=== PATIENT | female | born 1990 | race Caucasian/White ===

== ENCOUNTER 2017-10-14 00:55 | Emergency (ER) | payer MEDICAID, SELFPAY ==
[2017-10-14 01:02] VITALS: BP 132/87; PULSE 73; RESP 14; TEMP 36.9; O2SAT 96; BMI 23.3
[2017-10-14 01:29] LABS: Microscopic, Urine URINE MICROSCOPIC (MICROSCOPIC)
[2017-10-14 01:32] LABS: Basophils % 0.1 % (0.1-2.0); Eosinophils % 0.2 % (0.1-12.0); Hematocrit 40.1 % (37.0-47.0); Hemoglobin 12.9 g/dL (12.2-16.2); Lymphocytes # 1.7 K/mm3 (0.7-4.5); Lymphocytes % 10.8 K/mm3 (10-50); Mean Corpuscular HGB Conc 32.1 g/dL (31.8-35.4); Mean Corpuscular Hemoglobin 31.6 pg (27.0-31.2); Mean Corpuscular Volume 98.4 fl (81-99); Mean Platelet Volume 7.1 fl (7.4-10.4); Monocytes # 0.7 K/mm3 (0.1-1.0); Monocytes % 4.1 % (1.7-9.3); Neutrophils # 13.5 K/mm3 (1.8-7.8); Neutrophils % 84.8 % (37.0-80.0); Platelet Count 347 K/mm3 (142-424); Red Blood Count 4.07 M/mm3 (4.20-5.40); Red Cell Distribution Width 12.5 % (11.5-17.5); White Blood Count 15.9 K/mm3 (4.8-10.8)
[2017-10-14 01:39] LABS: MANUAL DIFFERENTIAL MANUAL DIFFERENTIAL (MANUAL DIFF)
[2017-10-14 01:43] LABS: Appearance,Urine CLEAR (Clear); Bilirubin,Urine Negative (Negative); Blood, Urine 2+ (Negative); Color,Urine YELLOW (Yellow); Glucose,Urine (UA) Negative (Negative); Ketones,Urine Negative (Negative); Leukocyte Esterase,Urine Negative (Negative); Nitrate,Urine Negative (Negative); Protein,Urine TRACE (Negative); Specific Gravity, Urine 1.025 (1.005-1.030); Urobilinogen,Urine 0.2 EU/dl (0.2)
[2017-10-14 01:47] LABS: Anion Gap 11.6 mEq/L (5-15); Blood Urea Nitrogen 12 mg/dL (7-18); Carbon Dioxide 26 mmol/L (21.0-32.0); Chloride 105 mmol/L (98-107); Creatinine,Serum 1.06 mg/dL (0.55-1.02); Potassium 3.6 mmoL/L (3.5-5.1); Sodium 139 mmol/L (136-145)
[2017-10-14 01:48] LABS: Urine Pregnancy, HCG Qual. Negative (Negative)
[2017-10-14 01:48] LABS: Alanine Aminotransferase 15 U/L (12-78); Albumin Level 3.6 gm/dL (3.4-5.0); Albumin/Globulin Ratio 0.9 (1.1-1.8); Alkaline Phosphatase 62 U/L (46-116); Amylase 58 U/L (25-125); Aspartate Amino Transferase 11 U/L (15-37); Bilirubin,Total 0.2 mg/dL (0.2-1.0); Calcium 8.6 mg/dL (8.5-10.1); Creatinine Clearance Estimated 79 mL/min (0-300); Estimated Glomerular Filt Rate 63 ml/min (>60); GFR (African American) 76 ML/MIN (>60); Glucose 114 mg/dL (74-106); Lipase 162 u/L (73-393); Total Protein,Serum 7.6 gm/dL (6.4-8.2)
--- NOTE | 2017-10-14 01:50 | CT_ITS ---
CT abdomen pelvis wo con Ordering Physician: Camilo Davis MD Patient Age: 27 years: Female HISTORY: ITS.REASON: pain Nausea vomiting diarrhea since 9 BPM. Hematuria. Recent pelvic pain but now Abdomen diffuse abdominal pain. TECHNIQUE: Helical CT scanning performed at of pelvis with no oral nor IV contrast utilized. HISTORY of abdominal pain COMPARISON :Previous CT abdomen pelvis from March 2014. The lung bases are clear. Abdomen/pelvis. The lack of oral and IV contrast decreases sensitivity. Liver unremarkable. Spleen unremarkable. . Pancreas appears generous in caliber throughout. Most likely stable but if upper abdominal pain should persist or progress consider follow-up amylase lipase. I see today's amylase and lipase are normal best this most likely is merely baseline appearance for this patient The lack of IV contrast diminishes resolution here but I see no discrete focal lesion nor pancreatic ductal dilatation. Kidneys. Small bilateral punctate calculi none measuring over 3 mm. Appear to be 3 tiny nonobstructive calculi towards upper pole right kidney; and mid and lower No bowel dilatation or obstruction. Upper normal wall thickness at the midportion right colon splenic flexure As well as splenic flexure.. There is moderate solid stool seen at the cecum which is low-lying at the right pelvis. No air-fluid levels at the colon. There is slight increased through the small bowel with scattered small air-fluid levels but small bowel nondilated. Nonetheless this could reflect early enteritis but unimpressive. Low-lying cecum which resides just above the bladder. No good evidence of appendicitis. Difficulty discretely visualize the appendix but I see no good evidence of appendicitis with overall appearance very similar to previous CT with oral contrast, but no remarkable fluid at cul-de-sac today however. Pelvis: The uterus appears. No free fluid no free air. Normal in size. The ovaries appear modest size normal size unremarkable IMPRESSION======== 1. No significant acute findings in the abdomen or pelvis. 2. GI tract. Minor observations: Perhaps slight increased fluid with modest scattered small air-fluid levels throughout nondilated small bowel. Unimpressive but could reflect minor enteritis. No significant liquid stool in colon evident Question perhaps minor wall thickening at the mid right colon; & splenic flexure towards left colon. Most likely reflecting lack of distention but cannot exclude some early colitis changes 3. A few Tiny punctate nonobstructive renal calculi bilaterally. No urinary tract obstruction .
[2017-10-14 01:54] LABS: Hypersegmented Neutrophils 1+; Lymphocytes % 7 % (10-50); Macrocytosis 1+; Monocytes % 1 % (2-9); Neutrophils % 88 % (42-76); Platelet Estimate Normal; Total Cells Counted 100
[2017-10-14 01:56] LABS: Amorphous Sediment,Urine Trace /lpf; Mucus,Urine Trace /lpf
[2017-10-14 02:12] LABS: Erythrocyte Sedimentation Rate 8 mm/hr (0-20)
[2017-10-14 02:34] LABS: Adenovirus F 40/41, stool Not Detected (NotDetected); Astrovirus Not Detected (NotDetected); Campylobacter Not Detected (NotDetected); Clostridium Difficile A/B, PCR Not Detected (NotDetected); Cryptosporidium Not Detected (NotDetected); Cyclospora Cayetanesis Not Detected (NotDetected); Entamoeba histolytica Not Detected (NotDetected); Enteroaggregative E coli Not Detected (NotDetected); Enteropathogenic E coli Not Detected (NotDetected); Enterotoxigenic E coli Not Detected (NotDetected); Giardia lamblia Not Detected (NotDetected); Norovirus Not Detected (NotDetected); Plesimonas Shigalloides, PCR Not Detected (NotDetected); Rotavirus A Not Detected (NotDetected); Salmonella, PCR Not Detected (NotDetected); Sapovirus Not Detected (NotDetected); Shiga-like toxin E coli Not Detected (NotDetected); Shigella Enterovasive E coli Not Detected (NotDetected); Vibrio Cholerae Not Detected (NotDetected); Vibrio, PCR Not Detected (NotDetected); Yersinia Entercolitica, PCR Not Detected (NotDetected)
--- NOTE | 2017-10-14 04:21 | HMH.EDNVD ---
ED Disposition Clinical Impression: Gastroenteritis Disposition: Home, Self-Care Condition on Discharge: Good Instructions: DI for Diarrhea and Traveler's Diarrhea -- Adult Additional Instructions: fluids and see pcp for follow up Referrals: Marino Naik MD [Primary Care Provider] - - Critical Care Critical Care Time: No Attestation: On 10/14/17, the high probability of a clinically significant, sudden or life threatening deterioration of the following system(s) required my full and direct attention, intervention and personal management. The time I documented below is in addition to time spent performing reported procedures but includes the following listed in this critical care notation. Medical Decision Making - Medical Records Medical records reviewed: Yes: I reviewed the patient's medical records. Vital Signs: 10/14/17 01:02 Temperature 98.5 F Temperature Source Oral Pulse Rate [Left Radial] 73 Respiratory Rate 14 Blood Pressure [Right Arm] 132/87 Blood Pressure Mean [Right Arm] 102 Blood Pressure Source [Right Arm] Automatic Cuff Blood Pressure Position [Right Arm] Sitting 02 Sat by Pulse Oximetry 96 Oxygen Delivery Method Room Air - Lab Data Lab results reviewed: Yes: I reviewed the patient's lab results. Lab Results 10/14/17 01:02: Urine Color Yellow, Urine Appearance Clear, Urine pH 6.0, Ur Specific [place] 1.025, Urine Protein Trace, Urine Glucose (UA) Negative, Urine Ketones Negative, Urine Blood 2+, Urine Nitrate Negative, Urine Bilirubin Negative, Urine Urobilinogen 0.2, Ur Leukocyte Esterase Negative, Urine RBC 5-10, Ur Squamous Epith Cells 3-5, Amorphous Sediment Trace, Urine Mucus Trace 10/14/17 01:02: Urine HCG, Qual Negative 10/14/17 01:15: WBC 15.9 H, RBC 4.07 L, Hgb 12.9, Hct 40.1, MCV 98.4, MCH 31.6 H, MCHC 32.1, RDW 12.5, Plt Count 347, MPV 7.1 L, Neut % (Auto) 84.8 H, Lymph % (Auto) 10.8, [place] % (Auto) 4.1, Eos % (Auto) 0.2, Baso % (Auto) 0.1, Neut # (Auto) 13.5 H, Lymph # (Auto) 1.7, [place] # (Auto) 0.7, Eos # (Auto) 0.0, Baso # (Auto) 0.0, Total Counted 100, Neutrophils % (Manual) 88 H, Band Neutrophils % 4.0, Lymphocytes % (Manual) 7 L, Monocytes % (Manual) 1 L, Hypersegmented Neuts 1+, Platelet Estimate Normal, Macrocytosis 1+, ESR 8 10/14/17 01:15: Sodium 139, Potassium 3.6, Chloride 105, Carbon Dioxide 26, Anion Gap 11.6, BUN 12, Creatinine 1.06 H, Estimated Creat Clear 79, Estimated GFR 63, Est GFR ( Amer) 76, Glucose 114 H, Calcium 8.6, Total Bilirubin 0.2, AST 11 L, ALT 15, Alkaline Phosphatase 62, Total Protein 7.6, Albumin 3.6, Globulin 4.0 H, Albumin/Globulin Ratio 0.9 L, Amylase 58, Lipase 162 10/14/17 02:25: Stl Aeromonas (PCR) Not detected, Stl C. cayetanensis PCR Not detected, Stool Rotavirus (PCR) Not detected, Stl Adenov F 40/41 PCR Not detected, Stool Astrovirus (PCR) Not detected, Stool Campylobacter PCR Not detected, Stl C.difficile Tox PCR Not detected, Stool Cryptosporidium PCR Not detected, Stl E.coli Shiga Tox PCR Not detected, Stool E coli O157 PCR Not detected, Stl Enterotoxigenic E PCR Not detected, Stool EPEC (PCR) Not detected, Stool EAEC (PCR) Not detected, Stl E. histolytica PCR Not detected, Stool Giardia Lamblia PCR Not detected, Stool Salmonella PCR Not detected, Stool Sapovirus (PCR) Not detected, Stl P. shigelloides PCR Not detected, Stl Shigella/EIEC PCR Not detected, St Y.enterocolitica PCR Not detected, Stool Vibrio (PCR) Not detected, Stl Vibrio cholerae PCR Not detected, Stl Norovirus GI/GII PCR Not detected Result diagrams: 10/14/17 01:15 10/14/17 01:15 Orders (Tests/Meds): ED MEDICATIONS Discontinued Medications Generic Name Dose Route Start Last Admin Trade Name Freq PRN Reason Stop Dose Admin Sodium Chloride 1,000 mls @ 999 mls/hr 10/14/17 01:30 10/14/17 01:23 Sod Chlor 0.9% 1000ml Bag IV 10/14/17 02:30 999 mls/hr .Q1H1M LAURITA Administration Sodium Chloride 1,000 mls @ 999 mls/hr 10/14/17 03:15 10/14/17 03:0
--- NOTE | 2017-10-14 04:24 | ED_ITS ---
ED Disposition Clinical Impression: Gastroenteritis Disposition: Home, Self-Care Condition on Discharge: Good Instructions: DI for Diarrhea and Traveler's Diarrhea -- Adult Additional Instructions: fluids and see pcp for follow up Referrals: Marino Naik MD [Primary Care Provider] - - Critical Care Critical Care Time: No Attestation: On 10/14/17, the high probability of a clinically significant, sudden or life threatening deterioration of the following system(s) required my full and direct attention, intervention and personal management. The time I documented below is in addition to time spent performing reported procedures but includes the following listed in this critical care notation. Medical Decision Making - Medical Records Medical records reviewed: Yes: I reviewed the patient's medical records. Vital Signs: 10/14/17 01:02 Temperature 98.5 F Temperature Source Oral Pulse Rate [Left Radial] 73 Respiratory Rate 14 Blood Pressure [Right Arm] 132/87 Blood Pressure Mean [Right Arm] 102 Blood Pressure Source [Right Arm] Automatic Cuff Blood Pressure Position [Right Arm] Sitting 02 Sat by Pulse Oximetry 96 Oxygen Delivery Method Room Air - Lab Data Lab results reviewed: Yes: I reviewed the patient's lab results. Lab Results 10/14/17 01:02: Urine Color Yellow, Urine Appearance Clear, Urine pH 6.0, Ur Specific [place] 1.025, Urine Protein Trace, Urine Glucose (UA) Negative, Urine Ketones Negative, Urine Blood 2+, Urine Nitrate Negative, Urine Bilirubin Negative, Urine Urobilinogen 0.2, Ur Leukocyte Esterase Negative, Urine RBC 5-10 , Ur Squamous Epith Cells 3-5, Amorphous Sediment Trace, Urine Mucus Trace 10/14/17 01:02: Urine HCG, Qual Negative 10/14/17 01:15: WBC 15.9 H, RBC 4.07 L, Hgb 12.9, Hct 40.1, MCV 98.4, MCH 31.6 H , MCHC 32.1, RDW 12.5, Plt Count 347, MPV 7.1 L, Neut % (Auto) 84.8 H, Lymph % ( Auto) 10.8, [place] % (Auto) 4.1, Eos % (Auto) 0.2, Baso % (Auto) 0.1, Neut # (Auto ) 13.5 H, Lymph # (Auto) 1.7, [place] # (Auto) 0.7, Eos # (Auto) 0.0, Baso # (Auto ) 0.0, Total Counted 100, Neutrophils % (Manual) 88 H, Band Neutrophils % 4.0, Lymphocytes % (Manual) 7 L, Monocytes % (Manual) 1 L, Hypersegmented Neuts 1+, Platelet Estimate Normal, Macrocytosis 1+, ESR 8 10/14/17 01:15: Sodium 139, Potassium 3.6, Chloride 105, Carbon Dioxide 26, Anion Gap 11.6, BUN 12, Creatinine 1.06 H, Estimated Creat Clear 79, Estimated GFR 63, Est GFR ( Amer) 76, Glucose 114 H, Calcium 8.6, Total Bilirubin 0.2, AST 11 L, ALT 15, Alkaline Phosphatase 62, Total Protein 7.6, Albumin 3.6, Globulin 4.0 H, Albumin/Globulin Ratio 0.9 L, Amylase 58, Lipase 162 10/14/17 02:25: Stl Aeromonas (PCR) Not detected, Stl C. cayetanensis PCR Not detected, Stool Rotavirus (PCR) Not detected, Stl Adenov F 40/41 PCR Not detected, Stool Astrovirus (PCR) Not detected, Stool Campylobacter PCR Not detected, Stl C.difficile Tox PCR Not detected, Stool Cryptosporidium PCR Not detected, Stl E.coli Shiga Tox PCR Not detected, Stool E coli O157 PCR Not detected, Stl Enterotoxigenic E PCR Not detected, Stool EPEC (PCR) Not detected , Stool EAEC (PCR) Not detected, Stl E. histolytica PCR Not detected, Stool Giardia Lamblia PCR Not detected, Stool Salmonella PCR Not detected, Stool Sapovirus (PCR) Not detected, Stl P. shigelloides PCR Not detected, Stl Shigella /EIEC PCR Not detected, St Y.enterocolitica PCR Not detected, Stool Vibrio (PCR ) Not detected, Stl Vibrio cholerae PCR Not detected, Stl Norovirus GI/GII PCR Not detected Result diagrams: 10/14/17 01:1
[2017-10-14 04:44] VITALS: BP 122/68; PULSE 72; RESP 14; TEMP 37.1; O2SAT 99
== END 2017-10-14 04:47 | disposition home or self-care (01) ==
PROVIDERS: Emergency Provider Emergency Medicine; Family Provider Internal Medicine Adolescent Medicine; PCP Internal Medicine Adolescent Medicine
DX: K52.9 Noninfective gastroenteritis and colitis, unspecified (principal); Z79.899 Other long term (current) drug therapy
CPT/HCPCS: 74176; 80053; 81001; 81025; 82150; 83690; 85007; 85025; 85651; 87507; 96365; 96366; 96374; 96375; 99283; J2405

== ENCOUNTER 2017-10-23 14:03 | Emergency (ER) | payer MEDICAID, SELFPAY ==
[2017-10-23 14:27] VITALS: BP 122/85; PULSE 80; RESP 18; TEMP 37.1; O2SAT 96; BMI 23.1
[2017-10-23 15:05] VITALS: BP 119/74; PULSE 78; RESP 18; TEMP 36.9; O2SAT 98; BMI 23.0
--- NOTE | 2017-10-23 15:11 | XR_ITS ---
XR acute abdomen series Ordering Physician: Robbie Adams MD Patient Age: 27 years: Female HISTORY: ITS.REASON: constipation, bloating TECHNIQUE: Upright chest with flat and upright views of abdomen COMPARISON : Previous CT abdomen pelvis from March 2014 FINDINGS Lung.. Clear no active disease no free air beneath diaphragm. Heart and mediastinal structures satisfactory. Flat and upright views of abdomen. Nonspecific bowel gas pattern. Little stool is evident throughout the colon but there is moderate gas particularly at the right and transverse colon and splenic flexure. No bowel dilatation or obstruction. IMPRESSION: ====== Nonspecific bowel gas pattern Minimal stool and moderate gas throughout colon. No bowel dilatation or obstruction. No active disease in the chest
[2017-10-23 15:17] LABS: Microscopic, Urine URINE MICROSCOPIC (MICROSCOPIC)
[2017-10-23 15:21] LABS: Appearance,Urine CLEAR (Clear); Bilirubin,Urine Negative (Negative); Blood, Urine 2+ (Negative); Color,Urine YELLOW (Yellow); Glucose,Urine (UA) Negative (Negative); Ketones,Urine Negative (Negative); Leukocyte Esterase,Urine Negative (Negative); Nitrate,Urine Negative (Negative); PH,Urine 6.5 (5.0-8.5); Protein,Urine Negative (Negative); Specific Gravity, Urine <= 1.005 (1.005-1.030); Urobilinogen,Urine 0.2 EU/dl (0.2)
[2017-10-23 15:28] LABS: Urine Pregnancy, HCG Qual. Negative (Negative)
[2017-10-23 15:37] LABS: Bacteria,Urine Trace /lpf; RBC,Urine Occasional #/hpf (0-3); WBC,Urine Occasional #/hpf (0-3)
--- NOTE | 2017-10-23 16:08 | HMH.EDABDPAI ---
ED Disposition Clinical Impression: Side effects of treatment Qualifiers: Encounter type: initial encounter Qualified Code(s): T88.9XXA - Complication of surgical and medical care, unspecified, initial encounter Disposition: Home, Self-Care Condition on Discharge: Good Instructions: DI for Acute Abdomen Additional Instructions: Please alternate Motrin Tylenol as needed for the abdominal cramps, take an [id number] Gas-X, as discussed. Drink plenty of fluids, eat a regular diet. Follow-up with PCP within 1-2 days if not better, return to this emergency room if worse or not better, at any time. Referrals: Marino Naik MD [Primary Care Provider] - Forms: Work/School Release Time of Disposition: 16:08 - Critical Care Critical Care Time: No Attestation: On 10/23/17, the high probability of a clinically significant, sudden or life threatening deterioration of the following system(s) required my full and direct attention, intervention and personal management. The time I documented below is in addition to time spent performing reported procedures but includes the following listed in this critical care notation. Medical Decision Making - Medical Records Medical records reviewed: Yes: I reviewed the patient's medical records. - Joseph Inquiry Pt receiving controlled substance: No Vital Signs: 10/23/17 14:27 10/23/17 15:05 10/23/17 16:24 Temperature 98.7 F 98.4 F 98.0 F Temperature Source Temporal Artery Scan Oral Oral Pulse Rate 88 Pulse Rate [Right] 80 78 Respiratory Rate 18 18 20 Blood Pressure 118/80 Blood Pressure [Right Arm] 122/85 119/74 Blood Pressure Mean [Right Arm] 97 89 Blood Pressure Source Automatic Cuff Blood Pressure Source [Right Arm] Automatic Cuff Automatic Cuff Blood Pressure Position Sitting Blood Pressure Position [Right Arm] Sitting Sitting 02 Sat by Pulse Oximetry 96 98 Oxygen Delivery Method Room Air Room Air Room Air - Lab Data Lab Results 10/23/17 15:05: Urine Color Yellow, Urine Appearance Clear, Urine pH 6.5, Ur Specific [place] <= 1.005, Urine Protein Negative, Urine Glucose (UA) Negative, Urine Ketones Negative, Urine Blood 2+, Urine Nitrate Negative, Urine Bilirubin Negative, Urine Urobilinogen 0.2, Ur Leukocyte Esterase Negative, Urine RBC Occasional, Urine WBC Occasional, Ur Squamous Epith Cells None, Urine Bacteria Trace 10/23/17 15:05: Urine HCG, Qual Negative - Radiology Data #1 Image(s): Chest, Abdomen Image Reviewed: Yes I reviewed the patient's radiology results Preliminary Findings: Normal/NAD normal gas / stool pattern Patient: Shannon Zhao MR#: [id number] : 1990 Acct:[id number] Age/Sex: 27 / F ADM Date: 10/23/17 Loc: ER Attending Dr: Ordering Physician: Robbie Adams MD Date of Service: 10/23/17 Procedure(s): XR acute abdomen series Accession Number(s): [id number] cc: Marino Naik MD; Cristóbal Aragon ~ XR acute abdomen series Ordering Physician: Robbie Adams MD Patient Age: 27 years: Female HISTORY: ITS.REASON: constipation, bloating TECHNIQUE: Upright chest with flat and upright views of abdomen COMPARISON : Previous CT abdomen pelvis from March 2014 FINDINGS Lung.. Clear no active disease no free air beneath diaphragm. Heart and mediastinal structures satisfactory. Flat and upright views of abdomen. Nonspecific bowel gas pattern. Little stool is evident throughout the colon but there is moderate gas particularly at the right and transverse colon and splenic flexure. No bowel dilatation or obstruction. IMPRESSION: ====== Nonspecific bowel gas pattern Minimal stool and moderate gas throughout colon. No bowel dilatation or obstruction. No active disease in the chest Dictated By: Cristóbal Aragon Signed By: <Electronically signed by Cristóbal Aragon in OV> 10/23/17 1382 DD/DT:
[2017-10-23 16:24] VITALS: BP 118/80; PULSE 88; RESP 20; TEMP 36.7; O2SAT 98
== END 2017-10-23 16:15 | disposition home or self-care (01) ==
LOC: UTC 14:46 → ER 15:11
PROVIDERS: Emergency Provider Emergency Medicine; Family Provider Internal Medicine Adolescent Medicine; PCP Internal Medicine Adolescent Medicine
DX: K59.00 Constipation, unspecified (principal)
CPT/HCPCS: 74021; 81001; 81025; 99283

== ENCOUNTER → 2018-02-27 11:36 | Outpatient (CLI) | payer MEDICAID, SELFPAY ==
[2018-02-27 12:00] LABS: Basophils % 0.5 % (0.1-2.0); Eosinophils # 0.1 K/mm3 (0.0-0.4); Eosinophils % 1.6 % (0.1-12.0); Hematocrit 40.9 % (37.0-47.0); Hemoglobin 13.2 g/dL (12.2-16.2); Mean Corpuscular HGB Conc 32.3 g/dL (31.8-35.4); Mean Corpuscular Hemoglobin 31.5 pg (27.0-31.2); Mean Corpuscular Volume 97.5 fl (81-99); Monocytes # 0.4 K/mm3 (0.1-1.0); Monocytes % 4.5 % (1.7-9.3); Neutrophils # 5.5 K/mm3 (1.8-7.8); Neutrophils % 68.5 % (37.0-80.0); Platelet Count 368 K/mm3 (142-424); Red Cell Distribution Width 12.6 % (11.5-17.5); White Blood Count 8.1 K/mm3 (4.8-10.8)
[2018-02-27 12:59] LABS: Alanine Aminotransferase 17 U/L (12-78); Albumin Level 3.4 gm/dL (3.4-5.0); Albumin/Globulin Ratio 0.9 (1.1-1.8); Alkaline Phosphatase 66 U/L (46-116); Anion Gap 10.2 mEq/L (5-15); Aspartate Amino Transferase 14 U/L (15-37); Bilirubin,Total 0.2 mg/dL (0.2-1.0); Blood Urea Nitrogen 8 mg/dL (7-18); Calcium 8.7 mg/dL (8.5-10.1); Carbon Dioxide 27 mmol/L (21.0-32.0); Chloride 105 mmol/L (98-107); Estimated Glomerular Filt Rate 60 ml/min (>60); GFR (African American) 73 ML/MIN (>60); Globulin 3.9 gm/dl (1.3-3.2); Glucose 79 mg/dL (74-106); Potassium 4.2 mmoL/L (3.5-5.1); Sodium 138 mmol/L (136-145); Thyroid Stimulating Hormone 1.98 uIU/ml (0.358-3.740); Total Protein,Serum 7.3 gm/dL (6.4-8.2)
[2018-03-06 12:55] LABS: EBV Ab VCA, IgM <36.0 U/mL
[2018-03-06 12:56] LABS: CMV PCR Negative
== END ==
PROVIDERS: Visit Provider Nurse Practitioner Family
DX: R53.83 Other fatigue (principal); R53.1 Weakness; R59.1 Generalized enlarged lymph nodes
CPT/HCPCS: 36415; 80053; 82607; 82652; 84443; 85025; 86665; 86777; 87496

== ENCOUNTER → 2018-05-09 12:28 | Outpatient (CLI) | payer MEDICAID, OTHER, SELFPAY ==
[2018-05-09 13:45] LABS: Basophils % 0.4 % (0.1-2.0); Eosinophils # 0.1 K/mm3 (0.0-0.4); Hematocrit 42.5 % (37.0-47.0); Hemoglobin 13.3 g/dL (12.2-16.2); Lymphocytes # 1.7 K/mm3 (0.7-4.5); Lymphocytes % 25.6 K/mm3 (10-50); Mean Corpuscular HGB Conc 31.4 g/dL (31.8-35.4); Mean Corpuscular Volume 98.6 fl (81-99); Mean Platelet Volume 6.8 fl (7.4-10.4); Monocytes # 0.3 K/mm3 (0.1-1.0); Monocytes % 4.5 % (1.7-9.3); Neutrophils # 4.6 K/mm3 (1.8-7.8); Neutrophils % 68.5 % (37.0-80.0); Platelet Count 383 K/mm3 (142-424); Red Blood Count 4.31 M/mm3 (4.20-5.40); Red Cell Distribution Width 12.8 % (11.5-17.5); White Blood Count 6.7 K/mm3 (4.8-10.8)
[2018-05-09 13:48] LABS: Alanine Aminotransferase 16 U/L (12-78); Albumin Level 3.6 gm/dL (3.4-5.0); Albumin/Globulin Ratio 0.9 (1.1-1.8); Alkaline Phosphatase 64 U/L (46-116); Anion Gap 11.5 mEq/L (5-15); Aspartate Amino Transferase 12 U/L (15-37); Bilirubin,Total 0.5 mg/dL (0.2-1.0); Blood Urea Nitrogen 9 mg/dL (7-18); Calcium 9.1 mg/dL (8.5-10.1); Carbon Dioxide 29 mmol/L (21.0-32.0); Chloride 104 mmol/L (98-107); Creatinine,Serum 1.04 mg/dL (0.55-1.02); Estimated Glomerular Filt Rate 64 ml/min (>60); Free Thyroxine Index 2.9 ug/dL (5.93-13.13); GFR (African American) 78 ML/MIN (>60); Globulin 3.9 gm/dl (1.3-3.2); Glucose 80 mg/dL (74-106); Potassium 4.5 mmoL/L (3.5-5.1); Sodium 140 mmol/L (136-145); T4 (Thyroxine) 9.6 ug/dl (4.7-13.3); Thyroid Stimulating Hormone 2.08 uIU/ml (0.358-3.740); Total Protein,Serum 7.5 gm/dL (6.4-8.2); Triiodothryronine (T3) Uptake 30 % (31-39)
[2018-05-10 13:09] LABS: Vitamin B12 410 pg/mL (232-1245)
== END ==
PROVIDERS: PCP Internal Medicine Adolescent Medicine; Visit Provider Internal Medicine Adolescent Medicine
DX: R53.82 Chronic fatigue, unspecified (principal); E53.8 Deficiency of other specified B group vitamins
CPT/HCPCS: 36415; 80053; 82607; 84436; 84443; 84479; 85025

== ENCOUNTER → 2018-12-17 15:09 | Outpatient (CLI) | payer BC, SELFPAY ==
--- NOTE | 2018-12-17 15:16 | XR_ITS ---
EXAM: XR lumbar spine min 4V HISTORY: Low back pain ITS.REASON: BILAT SACROILIAC DYSFUNCTION ORDERING PHYSICIAN: Tracee Ramos APRN PATIENT AGE: 28 years COMPARISON: None FINDINGS: Normal alignment. There is grade 1 spondylitic spondylolisthesis of L5 on S1. There is approximately 6 mm anterolisthesis of L5. No other significant anomalies are evident. IMPRESSION: Grade 1 spondylitic spondylolisthesis of L5 on S1
== END ==
PROVIDERS: PCP Internal Medicine Adolescent Medicine; Visit Provider Nurse Practitioner Family
DX: M53.3 Sacrococcygeal disorders, not elsewhere classified (principal)
CPT/HCPCS: 72110

== ENCOUNTER 2022-05-12 15:43 | Emergency (ER) | payer BC, SELFPAY ==
[2022-05-12 15:55] VITALS: BP 123/75; PULSE 83; RESP 18; TEMP 36.8; O2SAT 99; BMI 27.9
--- NOTE | 2022-05-12 16:08 | EXP.UTC ---
Discharge Plan Disposition Patient Disposition: Home, Self-Care Condition: Good Prescriptions Prescriptions: New methylprednisolone [Medrol (Ozzie)] 4 mg tablets,dose pack See Rx Instructions .Route .COMPLEX 6 Days Qty: 21 0RF Rx Instructions: taper pack; amoxicillin-pot clavulanate 875-125 mg Tablet 1 tab PO Q12H 7 Days Qty: 14 0RF No Action fluticasone propionate [Flovent Diskus] 50 MCG blister with device 50 mcg inhalation DAILY norgestrel-ethinyl estradiol [Low-Ogestrel (28)] 1 EACH tablet 1 ea PO DAILY citalopram [Celexa] 40 MG tablet 40 mg PO DAILY hydrocortisone [Proctozone-HC] 30 GM cream with perineal applicator 30 g topical NEEDED PRN (Reason: Hemorrhoids) pantoprazole 40 MG tablet,delayed release (DR/EC) 40 mg PO DAILY cetirizine [Zyrtec] 10 MG capsule 10 mg PO DAILYP PRN (Reason: Allergic Reaction) oseltamivir [Tamiflu] 75 MG capsule 75 mg PO BID Qty: 10 0RF Referrals Follow up/Referrals: Provider,Referral, MD [Primary Care Provider] - See instructions Activity Restrictions/Add. Instructions Additional Instructions/Restrictions: *Monitor Temp, Over the counter Motrin or Tylenol as directed/as needed Tylenol every 4 hours and Motrin every 6 hours (as long as your family doctor has told you that you can take it) for fever or pain. and straight to ER if unable to lower temp less than 101.0 after medication given *Warm salt water gargles may help to soothe the throat *Throat Lozenges? *Warm fluids like tea with honey may help to soothe the throat? *Sleep elevated *Humidifier/Vaporizer Follow up IMMEDIATELY for new or worsening symptoms or no Noticeable improvement over the next 48-72 hours. 911 for difficulty breathing or swallowing You were tested for today for COVID19 your test result should be back in the next 24-48 hours, you may check your results on the [facility] My Health Portal Make sure to take your Vitamins Vit. C Vit D and Zinc if you can take them Clinical Impressions Clinical Impression: Sinusitis Stand Alone Forms Stand Alone Forms: Work/School Release Instructions Patient Instructions: DI for Sinusitis, Sinusitis Discharge ED Provider: Maggi Rogers [facility] [place] HPI General Stated complaint: JACKSON Congestion Time Seen by Provider: 05/12/22 16:08 History of Present Illness Provider Complaint: Patient states that she was sick over a week ago and had sinus congestion fever and chills States that it got better but then came back States that she has been having headache sinus congestion and pressure states that she isnt able to taste anything but thinks it is from her nose being stopped up and scratchy throat States that today she was still not feeling any better so she came in Related Data Home Medications Medication Instructions Recorded Confirmed cetirizine 10 mg capsule (Zyrtec) 10 mg PO DAILYP PRN Allergic 10/14/17 10/14/17 Reaction citalopram 40 mg tablet (Celexa) 40 mg PO DAILY anxiety/depression 10/14/17 10/14/17 fluticasone propionate 50 50 mcg inhalation DAILY Allergy 10/14/17 10/14/17 mcg/actuation blister powder for symptoms inhalation (Flovent Diskus) hydrocortisone 2.5 % topical cream 30 g topical NEEDED PRN 10/14/17 10/14/17 with perineal applicator Hemorrhoids (Proctozone-HC) norgestrel 0.3 mg-ethinyl 1 ea PO DAILY control 10/14/17 10/14/17 estradiol 30 mcg tablet (Low-Ogestrel (28)) pantoprazole 40 mg tablet,delayed 40 mg PO DAILY Reflux/Acid reflux 10/14/17 10/14/17 release Previous Rx's Medication Instructions Recorded oseltamivir 75 mg capsule (Tamiflu) 75 mg PO BID #10 caps 10/17/18 amoxicillin 875 mg-potassium 1 tab PO Q12H 7 days #14 tabs 05/12/22 clavulanate 125 mg tablet methylprednisolone 4 mg tablets in See Rx Instructions .Route 05/12/22 a dose pack (Medrol (Ozzie)) .COMPLEX 6 days #21 tabs Allergies Allergy/AdvReac Type Severity Reac
[2022-05-12 16:16] VITALS: BP 123/75; PULSE 83; RESP 18; TEMP 36.8; O2SAT 99
[2022-05-12 16:25] LABS: Adenovirus,PCR Not Detected (NotDetected); Bordetella Pertussis Not Detected (NotDetected); Chlamydophila Pneumoniae, PCR Not Detected (NotDetected); Coronavirus 19, PCR Not Detected (NotDetected); Coronavirus 229E Not Detected (NotDetected); Coronavirus NL63 Not Detected (NotDetected); Coronavirus OC43 Not Detected (NotDetected); Coronovirus HKU1,PCR Not Detected (NotDetected); Human Metapneumovirus Not Detected (NotDetected); Influenza A, PCR Not Detected (NotDetected); Influenza AH1, 2009 Not Detected (NotDetected); Influenza AH1, PCR Not Detected (NotDetected); Influenza AH3,PCR Not Detected (NotDetected); Influenza B, PCR Not Detected (NotDetected); Mycoplasma Pneumoniae, PCR Not Detected (NotDetected); Parainfluenza 1, PCR Not Detected (NotDetected); Parainfluenza 2, PCR Not Detected (NotDetected); Parainfluenza 3, PCR Not Detected (NotDetected); Respiratory Syncytial Virus Not Detected (NotDetected); Rhinovirus/Enterovirus Not Detected (NotDetected)
[2022-05-12 19:46] LABS: Parainfluenza 4, PCR Detected (NotDetected)
== END 2022-05-12 16:22 | disposition home or self-care (01) ==
PROVIDERS: Emergency Provider Nurse Practitioner
DX: J32.9 Chronic sinusitis, unspecified (principal)
CPT/HCPCS: 87581; 87632; 87798; 99212; C9803; G0463; U0003; U0005

== ENCOUNTER 2022-09-27 10:50 | Emergency (ER) | payer BC, SELFPAY ==
[2022-09-27 11:15] VITALS: BP 115/72; PULSE 79; RESP 20; TEMP 36.9; O2SAT 99; BMI 28.3
--- NOTE | 2022-09-27 11:19 | EXP.UTC ---
Discharge Plan Disposition Patient Disposition: Home, Self-Care Condition: Good Prescriptions Prescriptions: New amoxicillin [amoxicillin] 500 mg tablet 500 mg PO TID 10 Days Qty: 30 0RF methylprednisolone 4 mg Tablets,Dose Pack 4 mg PO DIRECTED Qty: 21 0RF No Action duloxetine 30 mg capsule,delayed release(DR/EC) 30 mg PO DAILY citalopram [Celexa] 40 MG tablet 40 mg PO DAILY Referrals Follow up/Referrals: Lynette Santacruz PA [Primary Care Provider] - See instructions Activity Restrictions/Add. Instructions Additional Instructions/Restrictions: Drink plenty of fluids. Take tylenol or ibuprofen for pain or fever. Take the medications as directed. Follow up with your regular doctor. GO TO THE ER FOR ANY WORSENING SYMPTOMS Throw your tooth brush away and get a new one. Clinical Impressions Clinical Impression: Strep throat Stand Alone Forms Stand Alone Forms: Work/School Release Instructions Patient Instructions: Strep Throat, DI for Strep Throat Discharge ED Provider: Sony Espinoza [facility] General Stated complaint: sore throat, ear pain, body aches, JACKSON Time Seen by Provider: 09/27/22 11:19 History of Present Illness Provider Complaint: She c/o sore throat, fever, and malaise for the past 2 days. 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 Related Data Home Medications Medication Instructions Recorded Confirmed citalopram 40 mg tablet (Celexa) 40 mg PO DAILY anxiety/depression 10/14/17 09/27/22 duloxetine 30 mg capsule,delayed 30 mg PO DAILY . 09/27/22 09/27/22 release Previous Rx's Medication Instructions Recorded amoxicillin 500 mg tablet 500 mg PO TID 10 days #30 tabs 09/27/22 methylprednisolone 4 mg tablets in 4 mg PO DIRECTED #21 tabs 09/27/22 a dose pack Allergies Allergy/AdvReac Type Severity Reaction Status Date / Time No Known Allergies Allergy Verified 09/27/22 11:25 [facility] Disclaimer: The information contained in this section may have been updated after the patient was seen, as this information can be updated by other users. Medical History Anxiety Depression Surgical History History of lumbar spinal fusion History of wisdom tooth extraction Social History Smoking Status: Never smoker alcohol intake: never current occupational status: employed Travel in the last 8 weeks: None ROS Obtained: Yes All systems reviewed & no additional complaints except as documented Constitutional Constitutional: Reports chills and Reports fever(s) Eyes Eyes: Denies eye discharge ENT Ears, Nose, Mouth, and Throat: Reports as per HPI Cardiovascular Cardiovascular: Denies chest pain Respiratory Respiratory: Denies chest congestion and Reports cough Gastrointestinal Gastrointestingal: Reports nausea; Denies abdominal pain, constipation, cramping, diarrhea or vomiting Musculoskeletal Musculoskeletal: Denies arthralgias Integumentary/Breasts Skin/Breast: Denies rash Neurologic Neurologic: Denies paresthesias Physical Exam General General appearance: alert and in no apparent distress Head Head exam: atraumatic, normocephalic and normal inspection Eye Eye exam: Present normal appearance, PERRL and EOMI ENT ENT exam: Present mucous membranes moist and normal external ear exam Expanded ENT Exam TM/Canal exam: Bilateral TM: erythema and bulging Nose exam: Absent sinus tenderness Mouth exam: Present normal external inspection; Absent drooling Teeth exam: Present normal inspection Throat exam: Present tonsillar erythema, tonsillomegaly and tonsillar exudate Neck Neck exam: Present normal inspection, full ROM and trachea midline; Absent tenderness, meningismus or lymphadenopathy Chest Chest inspection: Pr
[2022-09-27 11:24] LABS: UTC Strep Screen (Rapid) Positive (Negative)
[2022-09-27 12:16] VITALS: BP 115/72; PULSE 79; RESP 20; TEMP 36.9; O2SAT 99
== END 2022-09-27 12:00 | disposition home or self-care (01) ==
PROVIDERS: Emergency Provider Nurse Practitioner Family; PCP Physician Assistant Medical
DX: J02.0 Streptococcal pharyngitis (principal)
CPT/HCPCS: 87880; 99212; 99213; G0463

== ENCOUNTER 2023-09-11 15:14 | Outpatient (CLI) | payer BC, SELFPAY ==
--- NOTE | 2023-09-11 15:28 | US_ITS ---
FINAL REPORT CLINICAL HISTORY: ABNORMAL TSH COMPARISON: None FINDINGS: THYROID ULTRASOUND: The right lobe of the thyroid measures 4.8 x 1.3 x 1.2 cm in size. No focal mass or nodule is identified in the right thyroid gland. The left lobe of the thyroid measures 4.4 x 1.1 x 1.6 cm in size. There is a lower pole nodule, 13 x 10 x 9 mm in size, that is solid, hypoechoic, a TI-RADS category 4 nodule. No other focal nodules or masses are seen. The isthmus measures 2.8 mm in thickness. IMPRESSION: 13 x 10 x 9 mm left lower pole thyroid nodule, a TI-RADS category 4 nodule. 6-month follow-up thyroid ultrasound is suggested. Reviewed, Interpreted and Dictated by Nima Buckley III, MD Transcribed by Colleen Saenz Authenticated and [facility]
== END 2023-09-11 23:59 ==
PROVIDERS: PCP Physician Assistant Medical; Visit Provider Physician Assistant
DX: R79.89 Other specified abnormal findings of blood chemistry (principal)
CPT/HCPCS: 76536

== ENCOUNTER 2023-12-04 07:01 | Outpatient (CLI) | payer BC, SELFPAY ==
--- NOTE | 2023-12-04 07:10 | NM_ITS ---
FINAL REPORT CLINICAL HISTORY: THYROID NODULE 7:15AM 352 UCI I 123 COMPARISON: None FINDINGS: 352 ?Ci of I-123 was taken orally. Radioiodine uptake measurements were obtained of the neck at 7 and 25 hours after tracer administration. 7-hour uptake: 16.4%, normal. 25-hour uptake: 26.9%, normal. IMPRESSION: Normal radioiodine uptake within the thyroid. Reviewed, Interpreted and Dictated by Hannah Taylor MD Transcribed by Melany Pan Authenticated and [facility]
[2023-12-04] MEDS: ISOTOPE I 123;100 UCI TABLET 3 EACH PO (07:44)
== END 2023-12-04 23:59 | disposition home or self-care (01) ==
LOC: RAD 07:04
PROVIDERS: PCP Family Medicine; Visit Provider Internal Medicine
DX: E04.1 Nontoxic single thyroid nodule (principal); E05.90 Thyrotoxicosis, unspecified without thyrotoxic crisis or storm
CPT/HCPCS: 78014; A9516

== ENCOUNTER 2024-05-17 13:30 | Outpatient (CLI) | payer BC, SELFPAY ==
--- NOTE | 2024-05-17 13:34 | US_ITS ---
FINAL REPORT CLINICAL HISTORY: NODULE COMPARISON: 09/11/2023 FINDINGS: Sonographic images of the thyroid gland were obtained. The right thyroid lobe measures 50 mm. in length. The left thyroid lobe measures 40 mm. in length. The thyroid isthmus measures 3 mm. The echogenicity is normal. The left lower pole mass noted on the prior exam of 12/04/2023 remains present. On today's exam this measures 12 x 9 x 8 mm in size, solid, hypoechoic, a TI-RADS category 4 nodule, essentially unchanged since the prior examination. No new masses or nodules are identified. IMPRESSION: No significant change in the left lower pole thyroid nodule as described above. Recommend 6 to 12-month follow-up thyroid ultrasound for further evaluation. Reviewed, Interpreted and Dictated by Nima Buckley III, MD Transcribed by Colleen Saenz Authenticated and [facility]
== END 2024-05-17 23:59 | disposition home or self-care (01) ==
LOC: RAD 13:31
PROVIDERS: PCP Family Medicine; Visit Provider Nurse Practitioner Family
DX: E04.1 Nontoxic single thyroid nodule (principal)
CPT/HCPCS: 76536

== ENCOUNTER 2024-10-04 15:36 | Outpatient (CLI) | payer BC, SELFPAY ==
--- NOTE | 2024-10-04 15:44 | US_ITS ---
FINAL REPORT CLINICAL HISTORY: NODULE COMPARISON: 05/17/2024, 09/11/2023 FINDINGS: THYROID ULTRASOUND: The right lobe of the thyroid gland measures 5.1 x 1.4 x 1.4 cm in size. There is slight heterogeneity of the thyroid parenchyma noted, unchanged. No focal nodules or masses are identified. The left lobe of the thyroid measures 5.1 x 1.3 x 1.5 cm in size. There is a hypoechoic focus noted in the left lobe of the thyroid gland, also seen on the prior examinations, which measures 12 x 8 x 9 mm in size, stable when compared to the most recent ultrasounds from 09/11/2023 and 05/17/2024. This is a TI-RADS category 4 nodule. The isthmus measures 3 mm in thickness and is unremarkable in appearance. IMPRESSION: Left nodule, TI-RADS category 4, again measures 12 x 9 x 8 mm in size, stable when compared to the 2 most recent thyroid ultrasounds performed. Recommend a 12-month follow-up thyroid ultrasound. Reviewed, Interpreted and Dictated by Hannah Taylor MD Transcribed by Colleen Saenz Authenticated and [facility]
== END 2024-10-04 23:59 | disposition home or self-care (01) ==
LOC: RAD 15:38
PROVIDERS: PCP Family Medicine; Visit Provider Internal Medicine
DX: E04.1 Nontoxic single thyroid nodule (principal)
CPT/HCPCS: 76536